=== PATIENT | male | born 1970 | race Caucasian/White ===

== ENCOUNTER 2020-12-05 16:11 | Emergency (ER) | payer OTHER ==
[~2020-12-05] VITALS: Ht 172.7 cm; Wt 130.9 kg
[2020-12-05 16:32] VITALS: BP 135/81; TEMP 98.6
[2020-12-05 19:04] LABS: BASO # 0.1 (0.0-0.2); BASO % 0.5 % (0.0-2.0); EOS # 0.1 (0.0-0.7); EOS % 0.8 % (0-4.0); GRAN # 7.8 (1.4-6.5); GRAN % 71.5 % (42.2-75.2); HEMATOCRIT 44.3 % (42.0-52.0); HEMOGLOBIN 15.2 g/dl (13.5-18.0); LYMPH # 2.2 (1.2-3.4); LYMPH % 19.7 % (20.0-51.0); MEAN CELL VOLUME 94 fl (80.0-100.0); MEAN CORPUSCULAR HEMOGLOBIN 32 pg (27.0-31.0); MEAN CORPUSCULAR HGB CONC 34 g/dl (33.0-37.0); MEAN PLATELET VOLUME 10.1 fl (7.4-10.4); MONO # 0.8 (0.1-0.6); MONO % 7.2 % (1.7-9.3); PLATELET COUNT 257 K/mm3 (130-400); REDCELL DISTRIBUTION WIDTH-CV 12.7 % (11.5-14.5)
[2020-12-05 19:14] LABS: ALANINE AMINOTRANSFERASE 31 U/L (4-49); ALBUMIN 4.4 gm/dL (3.5-5.0); ALKALINE PHOSPHATASE 67 U/L (50-136); ANION GAP 6 mmol/L (7-16); AST,SGOT 25 U/L (15-37); BILIRUBIN,TOTAL 0.7 mg/dL (0.0-1.0); BLOOD UREA NITROGEN 17 mg/dL (9-20); CALCIUM 9.3 mg/dL (8.4-10.2); CARBON DIOXIDE 29 mmol/L (22-30); CHLORIDE 103 mmol/L (98-107); CREATININE, serum 1.05 (0.66-1.25); GLUCOSE 100 mg/dL (74-106); LIPASE 53 U/L (23-300); POTASSIUM 4.4 mmol/L (3.4-5.0); SODIUM 137 mmol/L (137-145); TOTAL PROTEIN 7.7 gm/dL (6.4-8.2)
[2020-12-05] MEDS ORDERED: ZOFRAN ODT4 MG PO (20:27)
[2020-12-05] MEDS ORDERED: NORCO 325 MG-51 TAB PO (20:27)
[2020-12-05] MEDS ORDERED: AMOXICILLIN 8751 TAB PO (20:27)
[2020-12-05 20:55] VITALS: PULSE 86
[2020-12-05 21:23] LABS: TROPONIN-I < 0.012 ng/mL (0.000-0.035)
== END 2020-12-05 20:55 | disposition home or self-care (01) ==
LOC: COL.ER 16:11
PROVIDERS: Emergency Medicine
DX: K81.0 Acute cholecystitis (principal); I10 Essential (primary) hypertension
CPT/HCPCS: J0696; J2405; J7030; Q9967

== ENCOUNTER 2020-12-07 13:26 | Observation (INO) | payer OTHER ==
[2020-12-07] VITALS (8 sets, daily range): BP systolic 114–135; BP diastolic 49–77; PULSE 87–95
[~2020-12-07] VITALS: Ht 177.8 cm; Wt 129.5 kg
[~2020-12-07 13:26] MED LIST: AMOXICILLIN 8751 TAB PO; NORCO 325 MG-51 TAB PO; ZOFRAN ODT4 MG PO
[2020-12-07 14:55] LABS: COLLECTION METHOD CLEAN CATCH
[2020-12-07 15:13] LABS: MUCOUS Present /lpf; PH 5 (5-8); SQUAMOUS EPITHELIAL 0-2 /hpf; URINE APPEARANCE Hazy; URINE BACTERIA None Seen /hpf; URINE BILIRUBIN Negative (NEGATIVE); URINE BLOOD Negative (NEGATIVE); URINE COLOR Amber; URINE GLUCOSE Negative (NEGATIVE); URINE KETONE 1+ (NEGATIVE); URINE LEUKOCYTE ESTERASE Negative (NEGATIVE); URINE NITRATE Negative (NEGATIVE); URINE PROTEIN(semi-quant) 1+ (NEGATIVE); URINE UROBILINOGEN >=4.0 mg/dL (NEGATIVE)
[2020-12-07 15:32] LABS: HEMATOCRIT 46.4 % (42.0-52.0); HEMOGLOBIN 16.1 g/dl (13.5-18.0); MEAN CELL VOLUME 95 fl (80.0-100.0); MEAN CORPUSCULAR HEMOGLOBIN 33 pg (27.0-31.0); MEAN CORPUSCULAR HGB CONC 35 g/dl (33.0-37.0); MEAN PLATELET VOLUME 10.1 fl (7.4-10.4); PLATELET COUNT 269 K/mm3 (130-400); RED BLOOD COUNT 4.88 M/mm3 (4.20-5.60); REDCELL DISTRIBUTION WIDTH-CV 12.3 % (11.5-14.5)
[2020-12-07 15:41] LABS: ALBUMIN 4.8 gm/dL (3.5-5.0); C-REACTIVE PROTEIN 6.7 mg/dL (0.0-0.9); CALCIUM 9.5 mg/dL (8.4-10.2); CREATININE, serum 1.02 (0.66-1.25); POTASSIUM 4.5 mmol/L (3.4-5.0); TOTAL PROTEIN 8.4 gm/dL (6.4-8.2)
[2020-12-07 15:48] LABS: LYMPHOCYTE 7 % (20.0-51.0); NEUTROPHILS 89 % (42.0-75.2); PLATELET ESTIMATE NORMAL (NORMAL)
[2020-12-07] MEDS ORDERED: PRINIVIL40 MG PO (17:04)
--- NOTE | 2020-12-07 20:00 | NUR ---
Patient up from PACU at this time. 3 lap sites with bandaids clean, dry, and intact. Patient alert and oriented. 2 L of oxygen via nasal cannula. Fluids infusing to left IJ. Post op vitals stable.
--- NOTE | 2020-12-07 23:00 | NUR ---
Patient up to the bathroom. No dizziness. Voided without difficulty. Ambulated in the halls.
[2020-12-08 03:47] VITALS: BP 121/76; BP 96/49; PULSE 98; TEMP 98.6
--- NOTE | 2020-12-08 06:05 | NUR ---
Patient doing well this morning. No complaints of pain. Has been ambulating independently. Tolerating general diet.
[2020-12-08 06:55] VITALS: BP 123/77; PULSE 92; TEMP 98.1
--- NOTE | 2020-12-08 08:53 | NUR ---
LIJ removed per Drs order, tolerated well, instructions given.
--- NOTE | 2020-12-08 09:00 | NUR ---
Patient alert and oriented, answers questions appropriately. See assessment. Abdomen soft, non tender, non distended. Bowel sounds hyperactive x4 quads. +Flatus. Lap sites to abdomen with edges well approximated, no redness or drainage noted. Post op exercises reviwed with patient. No c/o at this time.
--- NOTE | 2020-12-08 10:53 | NUR ---
Discharge instructions reviewed with patient and spouse, verbalized understanding. Discharged via wheelchair to auto/home with spouse at 1022.
== END 2020-12-08 10:22 | disposition home or self-care (01) ==
LOC: COL.ER 13:26 → SURG 20:25
PROVIDERS: Family Medicine; ADMIT Surgery
DX: K80.00 Calculus of gallbladder with acute cholecystitis without obstruction (principal); K82.A1 Gangrene of gallbladder in cholecystitis; I10 Essential (primary) hypertension; E66.9 Obesity, unspecified; Z79.899 Other long term (current) drug therapy
CPT/HCPCS: G0378; J0330; J0690; J1100; J1170; J2405; J2704; J3010